=== PATIENT | female | born 1975 | race Caucasian/White ===

== ENCOUNTER 2020-03-31 11:00 | Outpatient (CLI) | payer BC ==
--- NOTE | 2020-03-31 11:20 | RAD ---
EXAM: 3 views of the right wrist HISTORY: Wrist pain COMPARISON: None FINDINGS: 3 views of the right wrist shows no evidence of acute fracture or dislocation. No soft tiss ue swelling is seen. No degenerative changes are present. IMPRESSION: No evidence of acute osseous abnormality.
== END 2020-03-31 11:01 | disposition home or self-care (01) ==
LOC: TBSIIMAG 11:00
PROVIDERS: ATTEND Neurological Surgery
DX: M25.531 Pain in right wrist (principal); W19.XXXA Unspecified fall, initial encounter

== ENCOUNTER 2022-01-21 11:04 | Outpatient (CLI) | payer BC, OTHER | END 2022-01-21 11:05 | disposition home or self-care (01) | LOC: BICRAD 11:04 | PROVIDERS: ATTEND Internal Medicine Rheumatology | DX: M46.1 Sacroiliitis, not elsewhere classified (principal); M79.671 Pain in right foot | CPT/HCPCS: 72202 ==

== ENCOUNTER 2024-01-30 12:42 | Outpatient (CLI) | payer BC | END 2024-01-30 12:43 | disposition home or self-care (01) | LOC: SCSMRI 12:42 | PROVIDERS: ATTEND Neurological Surgery | DX: M54.50 Low back pain, unspecified (principal); M25.552 Pain in left hip; N75.0 Cyst of Bartholin's gland; M67.854 Other specified disorders of tendon, left hip; M51.27 Other intervertebral disc displacement, lumbosacral region; M48.061 Spinal stenosis, lumbar region without neurogenic claudication; M16.12 Unilateral primary osteoarthritis, left hip; S73.192A Other sprain of left hip, initial encounter; N83.8 Other noninflammatory disorders of ovary, fallopian tube and broad ligament; R60.0 Localized edema; Z98.1 Arthrodesis status | CPT/HCPCS: 72158 ==